=== PATIENT | female | born 1950 | race Caucasian/White ===

== ENCOUNTER 2023-08-26 15:23 | Emergency (ER) | payer OTHER ==
[~2023-08-26] VITALS: Ht 157.5 cm; Wt 59.9 kg
[2023-08-26] MEDS ORDERED: ECOTRIN81 MG (16:09)
[2023-08-26] MEDS ORDERED: ATACAND16 MG (16:09)
[2023-08-26] MEDS ORDERED: PEPCID AC20 MG (16:10)
[2023-08-26] MEDS ORDERED: GABAPENTIN300 MG (16:10)
[2023-08-26] MEDS ORDERED: PLAVIX75 MG (16:11)
[2023-08-26 18:27] LABS: HEMOGLOBIN 14.4 g/dL (12.0-15.00); MEAN CELL VOLUME 88.1 fL (80.00-100.00); MEAN CORPUSCULAR HEMOGLOBIN 30.3 pg (27.00-32.0); MEAN CORPUSCULAR HGB CONC 34.4 g/dl (32.0-36.0); PLATELET COUNT 302 K/uL (150-450); RED BLOOD COUNT 4.77 M/uL (4.00-6.00); RED CELL DISTRIBUTION WIDTH 14.5 % (11.5-14.5)
[2023-08-26 18:45] LABS: INR 0.97; PARTIAL THROMBOPLASTIN TIME 27.9 SECONDS (22.0-34.0); PROTHROMBIN TIME 10.2 SECONDS (9.0-11.5)
[2023-08-26 18:46] LABS: PH,URINE 7.5 (5.0-8.0); URINE APPEARANCE Clear; URINE BILIRRUBIN Negative (NEGATIVE); URINE BLOOD Negative; URINE COLOR Yellow; URINE GLUCOSE Negative (NEGATIVE); URINE LEUKOCYTE Small; URINE NITRATE Negative; URINE PROTEIN Negative (NEGATIVE); URINE UROBILINOGEN 0.2 E.U./dl
[2023-08-26 18:47] LABS: CALCIUM 9.2 mg/dL (8.5-10.1); CREATININE SERUM 0.68 mg/dL (0.55-1.02); GFR 84.81; POTASSIUM 4.01 mEq/L (3.5-5.1)
[2023-08-26 18:50] LABS: URINE EPITHELIAL CELLS 6.4 uL (0.0-38.8); URINE RBC 5.6 uL (0.0-20.8); URINE WBC 17.4 uL (0.0-23.2)
[2023-08-26] MEDS ORDERED: ANTIVERT25 M2 PO (20:24)
== END 2023-08-26 20:37 | disposition home or self-care (01) ==
LOC: ER 15:23
PROVIDERS: General Practice
DX: R42 Dizziness and giddiness (principal); R11.10 Vomiting, unspecified
CPT/HCPCS: 36415; 70450; 71045; 96365; 96366; 99284; J7030

== ENCOUNTER 2023-09-04 16:10 | Emergency (ER) | payer OTHER ==
[~2023-09-04] VITALS: Ht 160 cm; Wt 59.9 kg
[~2023-09-04 16:10] MED LIST: ANTIVERT25 M2 PO; ATACAND16 MG; ECOTRIN81 MG; GABAPENTIN300 MG; PEPCID AC20 MG; PLAVIX75 MG
[2023-09-04 18:49] LABS: HEMATOCRIT 38.9 % (36.0-45.00); HEMOGLOBIN 13.2 g/dL (12.0-15.00); MEAN CELL VOLUME 86.2 fL (80.00-100.00); MEAN CORPUSCULAR HEMOGLOBIN 29.3 pg (27.00-32.0); PLATELET COUNT 306 K/uL (150-450); RED BLOOD COUNT 4.51 M/uL (4.00-6.00); RED CELL DISTRIBUTION WIDTH 14.9 % (11.5-14.5)
[2023-09-04 18:59] LABS: ALBUMIN 3.8 gm/dL (3.4-5.0); BILIRUBIN TOTAL 0.81 mg/dL (0.3-1.2); CALCIUM 9.3 mg/dL (8.5-10.1); CREATININE SERUM 0.8 mg/dL (0.55-1.02); GFR 70.31; GLOBULINA 3.7 G/DL (2.4-3.5); POTASSIUM 3.97 mEq/L (3.5-5.1); TOTAL PROTEIN 7.5 gm/dL (6.4-8.2)
[2023-09-04 20:09] LABS: URINE APPEARANCE Clear; URINE BILIRRUBIN Small (NEGATIVE); URINE BLOOD Negative; URINE COLOR Dark Yellow; URINE GLUCOSE Negative (NEGATIVE); URINE LEUKOCYTE Moderate; URINE NITRATE Negative; URINE PROTEIN Trace (NEGATIVE)
[2023-09-04 20:13] LABS: URINE BACTERIA 408.1 uL (0.0-1933); URINE EPITHELIAL CELLS 33.6 uL (0.0-38.8); URINE RBC 38.5 uL (0.0-20.8); URINE WBC 93.6 uL (0.0-23.2)
[2023-09-04 20:23] LABS: URINE MUCUS MODERATE
[2023-09-04 20:24] LABS: URINE CRYSTALS FEW /HPF
== END 2023-09-04 22:32 | disposition home or self-care (01) ==
LOC: ER 16:10
PROVIDERS: General Practice
DX: N30.90 Cystitis, unspecified without hematuria (principal); R10.9 Unspecified abdominal pain; R11.10 Vomiting, unspecified; R10.2 Pelvic and perineal pain; I10 Essential (primary) hypertension; Z88.2 Allergy status to sulfonamides
CPT/HCPCS: 36415; 74177; 96365; 96366; 99284; J1885; J2405; J3490; J7030; Q9965